=== PATIENT | female | born 1985 ===

== ENCOUNTER 2019-02-14 10:44 | Day surgery (SDC) | payer BC ==
[~2019-02-14 10:44] MED LIST: Buffered Lidocaine 1% SYRIN* 1 ML/SYRINGE INTRADERM ONE; Cyclopentolate 1% OPTH.SOL* 2 ML BTL ONE; Dexamethasone IV* 4 MG/ML 1 ML (4 MG) IV SLOW PU ONE; Dexamethasone IV* 4 MG/ML 1 ML (4 MG) ONE; Famotidine IV* 10 MG/ML 2 ML (20 mg) IV ONE; Famotidine IV* 10 MG/ML 2 ML (20 mg) ONE; Ketorolac 0.5% OPHTH (NF) 0.5 % 5 ML BTL ONE; Lactated Ringers 1000 ML Bag* 1,000 ML IV SCH; Lidocaine 1%* 5 ML VIAL ONE; Neomycin/Polymy/Dex OPHTH.OIN* 3.5 GM ONE; Phenylephrine OPHTH SOL 2.5%* 2 ML ONE; Povidone Iodine 5% OPTH* 30 ML BTL ONE; Tetracaine 0.5% OPTH.SOL 4 ML* 1 DROP BTL ONE; Tropicamide 1% OPTH.SOL* BTL ONE; acetaZOLAMIDE TAB* 250 MG ONE
[2019-02-14] MEDS ORDERED: ceFAZolin 2 GM PREMIX in ORs 0 GM/0 ML BAG ONE (10:55)
[2019-02-14] MEDS ORDERED: Clindamycin 900 MG IVPREMIX(* 900 MG/50 ML SDV IV ONE (11:19)
[2019-02-14] MEDS ORDERED: fentaNYL* 50 MCG/ML 2 ML VIAL (100 MCG VIAL) ONE ×2 (11:49→13:12)
[2019-02-14] MEDS ORDERED: Midazolam* 1 MG/ML 2 ML VIAL (2 MG) ONE (11:49)
[2019-02-14] MEDS ORDERED: Ondansetron INJ* 2 MG/ML VIAL ONE (11:51)
[2019-02-14] MEDS ORDERED: Ketorolac INJ* 30 MG/ML 1 ML VIAL ONE (11:51)
[2019-02-14] MEDS ORDERED: Propofol* 10 MG/ML 20 ML BTL ONE (11:51)
[2019-02-14] MEDS ORDERED: Lidocaine 2% PF * 5 ML VIAL ONE (11:51)
[2019-02-14] MEDS ORDERED: Ropivacaine 0.2% * 2 MG/ML VIAL ONE (12:39)
[2019-02-14] MEDS ORDERED: Lidocaine 1% MPF wEPI 200,000* 30 ML SDV ONE (12:39)
[2019-02-14] MEDS ORDERED: fentaNYL* 50 MCG/ML 2 ML VIAL (100 MCG VIAL) IV PRN (13:42)
[2019-02-14] MEDS ORDERED: DiMENhydriNATE IV* 50 MG/ML VIAL IV PUSH PRN (13:42)
[2019-02-14] MEDS ORDERED: Naloxone* 0.4 MG/ML 1 ML VIAL IV PRN (13:42)
[2019-02-14 14:45] VITALS: BP 119/77
--- NOTE | 2019-02-15 00:52 | OP ---
CC: PCP, Krishan Huang MD * DATE OF OPERATION: 02/14/19 - [facility] DATE OF : 85 SURGEON: Renny Shields MD RADIOLOGY SPECIALIST: None available. 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 OPERATIVE PROCEDURE: Right knee arthroscopy with: 1. Chondroplasty of the medial femoral condyle and patellar facet. 2. Lateral release. 3. Partial lateral meniscectomy. COMPLICATIONS: None. ESTIMATED BLOOD LOSS: Minimal. INDICATIONS: Jacklyn Danielle is a 33-year-old female whom I am seeing for almost a year with persistent knee pain. She has lost significant amount of weight. She has done physical therapy, has tried antiinflammatories. She now is having swelling as well as catching type of symptoms. We did an MRI, which demonstrated some chondral changes in patella as well as a lateral tilt to her patella. After extensive discussion of risks and benefits of surgical versus nonoperative treatment, she elected to proceed. DESCRIPTION OF PROCEDURE: The patient was greeted in the preoperative area by the attending surgeon. Correct extremity was marked and consent was confirmed. The patient was brought back to the operative suite where she was placed in supine position on the operating table. She then underwent general anesthesia and LMA intubation, after which she was appropriately positioned, lateral post was positioned. Unsterile tourniquet was placed high on the proximal thigh. The right leg was then prepped and draped in usual sterile fashion beginning with chlorhexidine soap, scrub, and alcohol wipe, and a final prep of ChloraPrep. After appropriate surgical pause indicating side, site, and procedure, the knee was intra-articularly injected with 1% lidocaine with epi. The anterolateral portal was made with a #11 blade. Scope was introduced into the joint. Joint was examined. There was synovitis anteriorly. The ACL and PCL were intact. The anteromedial portal was made in an outside-in fashion using an 18 gauge spinal needle. Shaver was used to debride back the ligamentum as well as some of the fat pad. There was evidence of grade 2 and 3 chondral changes in the medial femoral condyle of weightbearing zone that measured about 2 cm from anterior to posterior and was 5 mm except for the most proximal portion that was about 8 mm in width. This was debrided back using shaver, there was definitely unstable flap. The medial meniscus was examined and found to be intact. Medial plateau had grade 0 to 1 changes. The trochlea was examined and it had grade 0 to 1 changes. The patellar facet had grade 2 changes, particularly laterally and in the middle. The shaver was used to debride back the unstable flaps. The medial gutters were intact without any loose bodies and debrided. Lateral gutter was intact as well. There was obvious lateral tilt subluxation to the patella that was present when the knee was in extension. Lateral patellofemoral condyle was then identified as well and there was an area of grade 2 chondral changes in the weight-bearing zone, which is about 6 mm x 8 mm. The scope was brought into the lateral compartment. There was unstable fraying of root of the meniscus with unstable flap, which was debrided back using akiko as well as to perform partial meniscectomy of the fraying peripheral body. Lateral compartment otherwise had grade 0 to 1 changes. At this point, the decision was made to proceed with a lateral release because the patient does sublux slightly and tilt so much on the lateral side. This is likely why her patella tracked abnormally and has chondrosis as a result. Then the electrocautery device was then used to do a lateral release. The knee was then found to sit more centrally. Final images were obtained. The wounds were copiously irrigated with sterile saline. Hemostasis was obtained by using electrocautery device. The portals were closed with 3-0 nylon. Sterile dressings were applied and a Cryo/Cuff was applied. The knee was intra- articularly injected with 0.2% ropivacaine. She was awoken from anesthesia and transferred to the PACU in stable condition. POSTOPERATIVE PLAN: She will be weightbearing with crutches for the first 3 to 5 days. Range of motion as tolerated. She will be discharged on pain medication. DVT prophylaxis was considered and the patient has a significant fmaily history, and therefore she will be on Lovenox for at least 2 weeks, possibly 4 weeks. I will see the patient back in 10 to 14 days. [id number]/[facility] #: [id number] [facility]ITALHaresh
== END 2019-02-14 14:38 | disposition home or self-care (01) ==
LOC: OREAST 10:44
PROVIDERS: ATTEND Orthopaedic Surgery
DX: M22.41 Chondromalacia patellae, right knee (principal); M25.561 Pain in right knee; M23.261 Derangement of other lateral meniscus due to old tear or injury, right knee; Z68.31 Body mass index [BMI] 31.0-31.9, adult; R01.1 Cardiac murmur, unspecified
CPT/HCPCS: 81025; A9270-GY; J0690; J1100; J1885; J2001; J2250; J2405; J2704; J2795; J3010